=== PATIENT | male | born 1950 | race Caucasian/White ===

== ENCOUNTER 2018-07-11 17:42 | Emergency (ER) | payer MEDICARE, OTHER ==
--- NOTE | 2018-07-11 19:18 | XRAY Report ---
Reason: big toe injury Procedure Date: 07/11/2018 Accession Number: [id number] / [id number] Procedure: XR - Foot 3 View LT CPT Code: FULL RESULT: EXAM: LEFT FOOT RADIOGRAPHY EXAM DATE: 07/11/2018 06:55 PM. CLINICAL HISTORY: Big toe injury. Dropped 8 pound weight on foot. COMPARISON: None. TECHNIQUE: 3 views. FINDINGS: Bones: Mildly displaced midshaft fracture of the first distal phalanx. No other traumatic or destructive bone abnormalities. Joints: Normal. No subluxations. Soft Tissues: Associated soft tissue swelling. IMPRESSION: Mildly displaced shaft fracture of the first distal phalanx. RADIA
[2018-07-11 20:35] VITALS: BP 133/67
--- NOTE | 2018-07-11 21:21 | ED Physician Documentation ---
PD HPI LOWER EXT INJURY - Stated complaint Stated Complaint: TOE INJURY - Chief complaint Chief Complaint: Ext Problem - History obtained from History obtained from: Patient, Family - History of Present Illness PD HPI LOW EXT INJURY LOCATION: Left, Toe (great toe) Type of injury: Crush (a weight fell on his foot.) Where injury occurred: Home Timing - onset: How many hours ago (2) Timing - duration: Hours (2) Timing - details: Abrupt onset Pain level max: 6 Pain level now: 3 Improved by: Rest Worsened by: Moving, Palpating Associated symptoms: Swelling, Discolored (bruising). No: Weakness, Numbness, Tingling Contributing factors: Anticoagulated (warfarin, INR 2.8 yesterday.) Review of Systems Musculoskeletal: denies: Neck pain, Back pain Neurologic: denies: Focal weakness, Numbness PD PAST MEDICAL HISTORY - Past Medical History Cardiovascular: High cholesterol Respiratory: None Endocrine/Autoimmune: None GI: Crohn's disease, Other Psych: None Musculoskeletal: Osteoarthritis, Chronic back pain, Other - Past Surgical History Ortho: Spine surgery - Present Medications Home Medications: Ambulatory Orders Medication Instructions Recorded Confirmed Eszopiclone [Lunesta] 2 mg PO DAILY 10/23/14 07/11/18 Omeprazole [PriLOSEC] 80 mg PO DAILY 10/23/14 07/11/18 Sertraline [Zoloft] 75 mg PO DAILY 10/23/14 07/11/18 Warfarin Sodium [Coumadin] 7.5 mg PO DAILY 10/23/14 07/11/18 Hydrochlorothiazide 12.5 mg PO DAILY 07/11/18 07/11/18 - Allergies Allergies/Adverse Reactions: Allergies Allergy/AdvReac Type Severity Reaction Status Date / Time sulfamethoxazole AdvReac Unknown Verified 07/11/18 18:27 [From ] trimethoprim [From ] AdvReac Unknown Verified 07/11/18 18:27 - Social History Does the pt smoke?: No Smoking Status: Never smoker Does the pt drink ETOH?: No - Immunizations Immunizations are current?: Yes PD ED PE NORMAL - Vitals Vital signs reviewed: Yes - General General: Alert and oriented X 3, No acute distress - Derm Derm: Warm and dry - Extremities Extremities: Other (L foot - Tenderness and ecchymosis to the left great toe. No subungual hematoma. No lacerations. Neurovascularly intact) - Neuro Neuro: Alert and oriented X 3 Results - Vitals Vitals: Vital Signs - 24 hr 07/11/18 07/11/18 18:21 20:34 Temperature 36.4 C L 36.3 C L Heart Rate 70 67 Respiratory 18 16 Rate Blood Pressure 133/78 H 133/67 H O2 Saturation 100 97 Oxygen O2 Source Room air - Rads (name of study) Left foot x-ray Radiology: Prelim report reviewed, EMP read contemporaneously, See rad report (Mildly displaced shaft fracture of the first distal phalanx. ) PD MEDICAL DECISION MAKING - ED course Complexity details: reviewed results, considered differential, d/w patient, d/w family ED course: 68-year-old male with a Left great toe fracture. Placed in a postoperative shoe and will continue supportive care. Declines pain medications here or for home. Neurovascularly intact. INR was checked yesterday, we will not repeat today. Patient and family counseled regarding signs and symptoms for which I believe and urgent re-evaluation would be necessary. Patient with good understanding of and agreement to plan and is comfortable going home at this time This document was made in part using voice recognition software. While efforts are made to proofread this document, sound alike and grammatical errors may occur. Departure - Departure Disposition: 01 Home, Self Care Clinical Impression: Fracture of left great toe Qualifiers: Encounter type: initial encounter Fracture type: closed Phalanx: distal Fracture alignment: nondisplaced Qualified Code(s): S92.425A - Nondisplaced fracture of distal phalanx of left great toe, initial encounter for closed fracture Condition: Good Instructions: ED Fx Toe Closed Follow-Up: JAMIE EARLY MD [Primary Care Provider] - Within 1 week Comments: Wear the postoperative shoe until released by your doctor. You may bear weight as tolerated. Return if you worsen. You do have a fracture of the distal portion of your first toe. Discharge Date/Time: 07/11/18 21:35
== END 2018-07-11 21:35 | disposition home or self-care (01) ==
LOC: ED 17:42
DX: S92.425A Nondisplaced fracture of distal phalanx of left great toe, initial encounter for closed fracture (principal); W22.8XXA Striking against or struck by other objects, initial encounter; Y92.009 Unspecified place in unspecified non-institutional (private) residence as the place of occurrence of the external cause; E78.00 Pure hypercholesterolemia, unspecified; Z79.01 Long term (current) use of anticoagulants
CPT/HCPCS: 99282; 99283

== ENCOUNTER 2021-01-21 11:51 | Outpatient (CLI) | payer MEDICARE, OTHER | END 2021-01-21 11:52 | disposition home or self-care (01) | LOC: LAB 11:51 | DX: I26.99 Other pulmonary embolism without acute cor pulmonale (principal) | CPT/HCPCS: 36416; 85610 ==

== ENCOUNTER 2023-01-25 11:05 | Outpatient (CLI) | payer MEDICARE, OTHER ==
[2023-01-25 11:29] LABS: INR 2.1 (0.8-1.2); PT - PROTHROMBIN TIME 22.7 secs (9.9-12.6)
== END 2023-01-25 11:06 | disposition home or self-care (01) ==
LOC: LAB.R 11:05
PROVIDERS: ATTEND Pharmacist
DX: Z86.718 Personal history of other venous thrombosis and embolism (principal)
CPT/HCPCS: 85610

== ENCOUNTER 2023-06-07 12:08 | Outpatient (CLI) | payer MEDICARE, OTHER ==
[2023-06-07 12:16] LABS: INR 3.5 (0.8-1.2); PT - PROTHROMBIN TIME 35.7 secs (9.9-12.6)
== END 2023-06-07 12:09 | disposition home or self-care (01) ==
LOC: LAB.R 12:08
PROVIDERS: ATTEND Pharmacist
DX: Z86.718 Personal history of other venous thrombosis and embolism (principal)
CPT/HCPCS: 85610